=== PATIENT | male | born 1985 | race Caucasian/White ===

== ENCOUNTER 2017-05-13 09:52 | Emergency (ER) | payer OTHER ==
--- NOTE | 2017-05-13 11:33 | RAD ---
HISTORY: Head injury COMPARISONS: None TECHNIQUE: Multiple contiguous axial CT scans were obtained of the head without intravenous contrast. FINDINGS: HEMORRHAGE/INFARCT: There is no hemorrhage or acute infarct. MASSES/SHIFT: There is no mass or shift. EXTRA-AXIAL SPACES: There are no extra-axial fluid collections. SULCI AND VENTRICLES: The sulci and ventricles are normal in size and position for the patient's stated age. CEREBRUM: There are no focal parenchymal abnormalities. BRAINSTEM: There are no focal parenchymal abnormalities. CEREBELLUM: There are no focal parenchymal abnormalities. VESSELS: The vessels are grossly normal. PARANASAL SINUSES: The paranasal sinuses are clear. ORBITS: The orbits are unremarkable. BONES AND SOFT TISSUE: No bone or soft tissue abnormalities are noted. OTHER: None IMPRESSION: NO ACUTE INTRACRANIAL PATHOLOGY.
[2017-05-13] MEDS ORDERED: Ibuprofen TAB* 600 MG PO ONE (11:52)
--- NOTE | 2017-05-13 12:31 | ED ---
Head Injury - HPI Summary HPI Summary: 31 male presents to ED with complaints of hitting his head on a drop down ladder last night. Patient state she has a headache and feels somewhat dizzy. States he was suggested by friends to get checked out. States he is very sleepy due to not sleeping all night, as he was told not to due to head injury. No changes in vision. Admits to 1 episode of vomiting this morning after eating cereal. No current nausea. No LOC. Denies altered mental status and lethargy. No other complaints at this time. No PMHx. Denies anticoagulants, no medications [employer]. - History Of Current Complaint Chief Complaint: EDHeadInjury Stated Complaint: HEAD INJURY Hx Obtained From: Patient Mechanism Of Injury: Direct Blow Onset/Duration: Started Hours Ago, Traumatic, Still Present Onset of Pain: Immediate, Post Accident Severity Currently: Moderate Severity Initially: Moderate Pain Intensity: 8 Pain Scale Used: 0-10 Numeric Location of Head Injury: Parietal Location: Diffuse - headache Character: Throbbing, Aching Alleviating Factor(s): Rest Associated Signs And Symptoms: Vomiting - 1, Headache, Other: - hematoma parietal, top/back of head - Allergies/Home Medications Allergies/Adverse Reactions: Allergies Allergy/AdvReac Type Severity Reaction Status Date / Time No Known Allergies Allergy Verified 05/13/17 09:56 PMH/Surg Hx/FS Hx/Imm Hx Endocrine/Hematology History: Denies: Hx Anticoagulant Therapy, Hx Diabetes, Hx Thyroid Disease Cardiovascular History: Denies: Hx Congestive Heart Failure, Hx Deep Vein Thrombosis, Hx Hypertension , Hx Myocardial Infarction, Hx Pacemaker/ICD Respiratory History: Denies: Hx Asthma, Hx Chronic Obstructive Pulmonary Disease (COPD), Hx Lung Cancer, Hx Pneumonia, Hx Pulmonary Embolism GI History: Denies: Hx Gall Bladder Disease, Hx Gastrointestinal Bleed, Hx Ulcer, Hx Urosepsis History: Denies: Hx Kidney Stones, Hx Renal Disease Neurological History: Denies: Hx Dementia, Hx Migraine, Hx Seizures, Hx Transient Ischemic Attacks (TIA) Psychiatric History: Denies: Hx Anxiety, Hx Depression, Hx Schizophrenia, Hx Bipolar Disorder - Surgical History Surgery Procedure, Year, and Place: Abscess I&Ds 09/29/15, SHOULDER SURGERY - Immunization History Immunizations Up to Date: Yes Infectious Disease History: No Infectious Disease History: Reports: Hx of Known/Suspected MRSA Denies: Traveled Outside the [place] in Last 30 Days - Family History Known Family History: Positive: Other - PT TOO AGITATED DURING ENCOUNTER TO ADDRESS FAMILY HISTORY - Social History Alcohol Use: None Substance Use Type: Reports: Marijuana Hx Tobacco Use: Yes Smoking Status (MU): Current Every Day Smoker Type: Cigarettes Amount Used/How Often: 1/2 PPD Review of Systems Constitutional: Negative Eyes: Negative ENT: Negative Cardiovascular: Negative Respiratory: Negative Positive: Vomiting - resolved, 1 episode Musculoskeletal: Negative Positive: Other - hematoma, head Neurological: Other - head injury Positive: Headache All Other Systems Reviewed And Are Negative: Yes Physical Exam Triage Information Reviewed: Yes Vital Signs On Initial Exam: Initial Vitals Temp Pulse Resp BP Pulse Ox 98.8 F 72 16 132/81 97 05/13/17 09:57 05/13/17 09:57 05/13/17 09:57 05/13/17 09:57 05/13/17 09:57 Vital Signs Reviewed: Yes Appearance: Positive: Well-Appearing - appears to be vey sleepy, No Pain Distress, Well-Nourished Skin: Positive: Warm, Skin Color Reflects Adequate Perfusion, Dry. Negative: Cold, Soft, Erythema @ Head/Face: Positive: Scalp - small hematoma noted posterior parietal lobe, no active bleeding however dried blood noted. small abrasion over area. no crepitus , depression or other signs of trauma., Other - no raccoon eyes or battles signs. no other signs of obvious trauma Eyes: Positive: EOMI, SCHUYLER, Conjunctiva Clear ENT: Positive: Hearing grossly normal, Pharynx normal, TMs normal Neck: Positive: Supple, Nontender Respiratory/Lung Sounds: Positive: Clear to Auscultation, Breath Sounds Present. Negative: Rales, Rhonchi, Wheezes Cardiovascular: Positive: Normal, RRR, Pulses are Symmetrical in both Upper and Lower Extremities. Negative: Murmur, Rub Abdomen Description: Positive: Nontender, Soft Bowel Sounds: Positive: Present Musculoskeletal: Positive: Normal, Strength/ROM Intact. Negative: Limited @, Interruption @, Abnormal @, Pain @, Edema Left, Edema Right Neurological: Positive: Normal - memory and concentration intact. normal neuro exam, Sensory/Motor Intact, Alert, Oriented to Person Place, Time, CN Intact II- III, Reflexes Intact, NV Bundle Intact Distally, Normal Gait, Finger to Nose - normal, Facial Symmetry, Speech Normal Psychiatric: Positive: Affect/Mood Appropriate - [place] Coma Scale Best Eye Response: 4 - Spontaneous Best Motor Response: 6 - Obeys Commands Best Verbal Response: 5 - Oriented Coma Scale Total: 15 Diagnostics - Vital Signs Vital Signs Temp Pulse Resp BP Pulse Ox 05/13/17 09:57 98.8 F 72 16 132/81 97 - Laboratory Lab Statement: Any lab studies that have been ordered have been reviewed, and results considered in the medical decision making process. - CT brain CT Interpretation: No Acute Changes - NO ACUTE INTRACRANIAL PATHOLOGY. CT Interpretation Completed By: Radiologist Head Injury Course/Dx Course Of Treatment: had relief from ibuprofen. CT obtained and negative. Abrasion on head was cleaned and no sutureable. appears to have suffered a concussion due to symptoms and CORAL. Educated on worsening signs and symptoms. Follow up with PCP for re-eval. fluids, rest, ibuprofen and follow up. normal neurologic examination. no other concerns at this time. - Diagnoses Differential Diagnosis/HQI/PQRI: Concussion Without LOC, Contusion, Hematoma, Skull Fracture, Other - headache, head injury Provider Diagnoses: Head injury due to trauma, Concussion without loss of consciousness Discharge - Discharge Plan Condition: Stable Disposition: HOME Prescriptions: Ibuprofen TAB* [Motrin TAB* 600 MG] 600 mg PO Q6H PRN #20 tab PRN Reason: Headache Patient Education Materials: Concussion (ED), Head Injury (ED) Referrals: No Primary Care Phys,NOPCP [Primary Care Provider] - [facility] [place] [facility] [Outside] Additional Instructions: Apply ice to hematoma, keep clean and dry. Apply triple anti biotic ointment. Drink plenty of fluids, get plenty of rest. Avoid high concentrating and strenuous activities. Avoid physical activity until symptoms improve and released by PCP. Ibuprofen as needed for pain and headache. Follow up and be re-evaluated for concussion within the next 2 weeks. Any new or worsening symptoms, please return immediately, as we discussed.
[2017-05-13 12:40] VITALS: BP 96/65
== END 2017-05-13 12:39 | disposition home or self-care (01) ==
LOC: ED 09:52
DX: S09.90XA Unspecified injury of head, initial encounter (principal); S06.0X0A Concussion without loss of consciousness, initial encounter; R11.10 Vomiting, unspecified; R51 Headache; F17.210 Nicotine dependence, cigarettes, uncomplicated; W11.XXXA Fall on and from ladder, initial encounter; Y93.9 Activity, unspecified; Y92.9 Unspecified place or not applicable
CPT/HCPCS: 70450; 99282; A9270-GY